=== PATIENT | female | born 1990 | race Caucasian/White ===

== ENCOUNTER 2019-12-08 08:57 | Emergency (ER) | payer SELFPAY ==
[~2019-12-08] VITALS: Ht 162.6 cm; Wt 88.6 kg
[2019-12-08 09:01] VITALS: BP 127/82
--- NOTE | 2019-12-08 09:06 | NUR ---
PT AMB TO BED 8.
--- NOTE | 2019-12-08 09:10 | NUR ---
PT C/O TIGHT-LIKE LOW BACK PAIN THAT RADIATES TO LEFT THIGH AND PELVIC AREA FOR 10 DAYS. DENIES TRAUMA OR LIFTED HEAVY STUFF. DENIES SX OF UTI OR HEMATURIA. PATIENT STATES PAIN OF 10/10 AT THIS TIME; VSS; PATIENT POSITIONED FOR COMFORT; HOB ELEVATED; BEDRAILS UP X1; BED DOWN. ER MD MADE AWARE OF PT STATUS.
[2019-12-08] MEDS ORDERED: NACL 0.9% 1,000 ML IV ONE (09:15)
[2019-12-08] MEDS ORDERED: KETOROLAC 30 MG/ML VIAL IVP ONE (09:15)
[2019-12-08] MEDS ORDERED: ACETAMINOPHEN 650 MG/20.3 ML UDC PO ONE (09:15)
[2019-12-08] MEDS ORDERED: DEXAMETHASONE 4 MG/ML VIAL PO ONE (09:15)
[2019-12-08] MEDS ORDERED: ACETAMINOPHEN 325 MG TAB PO ONE (09:30)
[2019-12-08] MEDS ORDERED: ACETAMINOPHEN 325 MG TAB ONE (09:31)
--- NOTE | 2019-12-08 10:08 | NUR ---
Dr. Sandhu is evaluating the patient at bedside.
--- NOTE | 2019-12-08 10:56 | NUR ---
PT IS RESTING IN BED.
[2019-12-08 11:03] VITALS: BP 120/79
--- NOTE | 2019-12-08 11:03 | NUR ---
Patient discharged with v/s stable. Written and verbal after care instructions given and explained. Patient alert, oriented and verbalized understanding of instructions. Ambulatory with steady gait. All questions addressed prior to discharge. ID band removed. Patient advised to follow up with PMD. Rx of [place], Motrin, Decadron, Flexeril given. Patient educated on indication of medication including possible reaction and side effects. Opportunity to ask questions provided and answered.
--- NOTE | 2019-12-13 11:42 | NUR ---
Late entry. Confirmed with RN that 0.9 NS IV completed at 1045
== END 2019-12-08 11:03 | disposition home or self-care (01) ==
LOC: MED 08:57
DX: M54.5 Low back pain (principal); Z88.2 Allergy status to sulfonamides; X50.9XXA Other and unspecified overexertion or strenuous movements or postures, initial encounter; Y93.89 Activity, other specified; Y92.89 Other specified places as the place of occurrence of the external cause; Y99.8 Other external cause status
CPT/HCPCS: 81002; 81025; 96374; 99283; J1100; J1885

== ENCOUNTER 2021-05-08 14:03 | Emergency (ER) | payer MEDICAID ==
--- NOTE | 2021-05-08 14:40 | NUR ---
PATIENT LEFT WITHOUT BEING TRIAGED . NO FURTHER CARE PROVIDED FOR PATIENT.
== END 2021-05-08 14:40 | disposition left against medical advice (07) ==
LOC: MED 14:03
DX: Z53.21 Procedure and treatment not carried out due to patient leaving prior to being seen by health care provider (principal)

== ENCOUNTER 2021-05-15 11:38 | Emergency (ER) | payer MEDICAID ==
[~2021-05-15] VITALS: Ht 170.2 cm; Wt 67.6 kg
[2021-05-15 11:50] VITALS: BP 129/87
[2021-05-15] MEDS ORDERED: IBUPROFEN 400 MG TAB PO ONE (12:30)
[2021-05-15] MEDS ORDERED: LIDOCAINE MPF 1% 10 MG/ML VIAL INJ ONE (12:30)
--- NOTE | 2021-05-15 12:55 | NUR ---
Dr. Nicholas with pt for procedure.
--- NOTE | 2021-05-15 12:57 | NUR ---
31 YEAR OLD FEMALE COMPLAINS OF LEFT SIDED NECK PAIN X 4 DAYS. PT ALSO STATES ACCOMPANIED BY NUMBNESS AND TINGLING TO LEFT SIDE OF FACE WITH DIFFICULTY SWALOWING DUE TO PAIN. PT AOX4, BREATHING EVEN AND UNLABORED, SKIN WARM AND DRY. BED IN LOWEST POSITION, LOCKED, BED RAIL UPX1. PMH - ANXIETY ALLERGIES - BACTRIM
--- NOTE | 2021-05-15 13:45 | NUR ---
Patient discharged with v/s stable. Written and verbal after care instructions about muscle cramps and spasms given and explained. Patient alert, oriented and verbalized understanding of instructions. Ambulatory with steady gait. All questions addressed prior to discharge. ID band removed. Patient advised to follow up with PMD. Opportunity to ask questions provided and answered.
[2021-05-15 13:47] VITALS: BP 129/87
== END 2021-05-15 13:45 | disposition home or self-care (01) ==
LOC: MED 11:38
DX: M54.81 Occipital neuralgia (principal); M62.830 Muscle spasm of back; F41.9 Anxiety disorder, unspecified; Z88.2 Allergy status to sulfonamides; Z98.890 Other specified postprocedural states
CPT/HCPCS: 99282; J2001

== ENCOUNTER 2022-03-10 16:22 | Emergency (ER) | payer MEDICAID ==
[~2022-03-10] VITALS: Ht 162.6 cm; Wt 80.7 kg
[2022-03-10 16:28] VITALS: BP 140/84
--- NOTE | 2022-03-10 17:20 | NUR ---
Maico horner in [facility] - 03/10/22 at 1720 by MEDAKIRA PT TO
--- NOTE | 2022-03-10 17:24 | NUR ---
PA DORANTES BEDSIDE EVALUATING PT
--- NOTE | 2022-03-10 17:26 | NUR ---
32Y FEMALE BIB SELF DUE TO RASH ON NECK REGION THAT OCCURED TODAY. RASH NOTED ON PT UPPER NECK REGION. PT STATED SHE EXPERINCES PAIN WHEN EATING DUE TO THE RASH. PT DENIES TRYING NEW CREAM/LOTION OR LAUNDRY SOAP. PMH: DENIES ALLERGIES: SULFA
--- NOTE | 2022-03-10 17:28 | NUR ---
DR. DEL ROSARIO AND MUNDO DORANTES BEDSIDE EVALUATING PT
[2022-03-10] MEDS ORDERED: IBUP-2213 PO (17:36)
[2022-03-10] MEDS ORDERED: CEPH-588 PO (17:36)
[2022-03-10] MEDS ORDERED: cefTRIAXone 1,000 MG in LIDOCAINE MPF 1% 2.1 ML IM ONE ×2 (17:45→17:55)
[2022-03-10] MEDS ORDERED: cefTRIAXone 1,000 MG VIAL ONE (18:01)
[2022-03-10] MEDS ORDERED: LIDOCAINE MPF 1% 5 ML ONE (18:02)
--- NOTE | 2022-03-10 18:33 | NUR ---
Patient discharged with v/s stable. Written and verbal after care instructions given and explained. Patient alert, oriented and verbalized understanding of instructions. Ambulatory with steady gait. All questions addressed prior to discharge. ID band removed. Patient advised to follow up with PMD. Rx of KEFLEX AND IBUPROFEN given. Patient educated on indication of medication including possible reaction and side effects. Opportunity to ask questions provided and answered.
== END 2022-03-10 18:33 | disposition home or self-care (01) ==
LOC: MED 16:22
DX: L03.221 Cellulitis of neck (principal); R03.0 Elevated blood-pressure reading, without diagnosis of hypertension; Z88.2 Allergy status to sulfonamides; Z79.899 Other long term (current) drug therapy
CPT/HCPCS: 96372; 99283; J0696; J2001